=== PATIENT | female | born 2000 | race African-American/Black ===

== ENCOUNTER 2022-10-09 13:23 | Emergency (ER) | payer MEDICAID ==
[~2022-10-09] VITALS: Ht 175.3 cm; Wt 57.0 kg
[2022-10-09 13:41] VITALS: BP 110/68
[2022-10-09] MEDS ORDERED: DEXAMETHASONE 10 MG/ML VIAL IV ONE (18:30)
== END 2022-10-09 17:11 | disposition left against medical advice (07) ==
LOC: ER 13:23
DX: K92.0 Hematemesis (principal)
CPT/HCPCS: 81025; 99282; J1100